=== PATIENT | female | born 1965 | race Two or more races ===

== ENCOUNTER 2017-09-30 11:55 | Emergency (ER) | payer OTHER ==
[~2017-09-30 11:55] MED LIST: SIMV20TA2 PO
== END 2017-09-30 12:43 | disposition left against medical advice (07) ==
LOC: ER 12:00
DX: Z53.21 Procedure and treatment not carried out due to patient leaving prior to being seen by health care provider (principal)

== ENCOUNTER 2017-09-30 17:52 | Emergency (ER) | payer OTHER ==
[~2017-09-30] VITALS: Ht 165.1 cm; Wt 65.8 kg
[2017-09-30 17:59] VITALS: BP 153/89
[2017-09-30] MEDS ORDERED: IBUPROFEN 600 MG TABLET PO ONE ×2 (18:18→18:30)
[2017-09-30] MEDS ORDERED: TDAP [DIPH/PERTUSSIS/TET] 0.5 ML VIAL IM ONE ×2 (18:30→18:42)
== END 2017-09-30 20:52 | disposition home or self-care (01) ==
LOC: ER 17:54
DX: S80.02XA Contusion of left knee, initial encounter (principal); S80.01XA Contusion of right knee, initial encounter; E10.9 Type 1 diabetes mellitus without complications; I25.2 Old myocardial infarction; H33.22 Serous retinal detachment, left eye; E78.00 Pure hypercholesterolemia, unspecified; G56.00 Carpal tunnel syndrome, unspecified upper limb; W01.0XXA Fall on same level from slipping, tripping and stumbling without subsequent striking against object, initial encounter; Y93.89 Activity, other specified; Y92.481 Parking lot as the place of occurrence of the external cause; Y99.8 Other external cause status
CPT/HCPCS: 73564 ×2; 90471; 90715; 99284; A4606; Z7610

== ENCOUNTER 2018-08-15 16:30 | Emergency (ER) | payer OTHER ==
[~2018-08-15] VITALS: Ht 162.6 cm; Wt 76.2 kg
--- NOTE | 2018-08-15 16:50 | NUR ---
PT BIB SELF C/O RIGHT FOOT/ANKLE PAIN AND SWELLING,TWISTED IT 2 DAYS AGO, PT IS AAOX4, NOT IN RESPIRATORY DISTRESS, V/S STABLE, KEPT RESTED AND COMFORTABLE.
[2018-08-15] MEDS ORDERED: HYDROCODONE/APAP 5/325MG 1 EACH TABLET PO ONE (17:00)
[2018-08-15] MEDS ORDERED: HYDROCODONE/APAP 5/325MG 1 EACH TABLET ONE (17:03)
[2018-08-15 18:26] VITALS: BP 128/71
--- NOTE | 2018-08-15 18:26 | NUR ---
Patient discharged to home in stable condition. Written and verbal after care instructions given. Patient verbalizes understanding of instruction.
== END 2018-08-15 18:27 | disposition home or self-care (01) ==
LOC: ER 16:33
DX: S92.331A Displaced fracture of third metatarsal bone, right foot, initial encounter for closed fracture (principal); S92.341A Displaced fracture of fourth metatarsal bone, right foot, initial encounter for closed fracture; S90.511A Abrasion, right ankle, initial encounter; E10.9 Type 1 diabetes mellitus without complications; E78.00 Pure hypercholesterolemia, unspecified; F17.200 Nicotine dependence, unspecified, uncomplicated; Z98.890 Other specified postprocedural states; Z79.899 Other long term (current) drug therapy; X50.1XXA Overexertion from prolonged static or awkward postures, initial encounter; Y93.89 Activity, other specified; Y92.89 Other specified places as the place of occurrence of the external cause; Y99.8 Other external cause status
CPT/HCPCS: 73630; 99283; A4606; Z7610